=== PATIENT | male | born 1965 | race Caucasian/White ===

== ENCOUNTER 2016-04-07 03:39 | Emergency (ER) | payer OTHER ==
[~2016-04-07] VITALS: Ht 157.5 cm; Wt 70.5 kg
[~2016-04-07 03:39] MED LIST: LOPE2TAB32 PO; ONDA8TAB7 PO
--- NOTE | 2016-04-07 03:45 | ED.REPORT ---
HPI-Abd Pain M 40 and Over Date of Service Apr 07, 2016 ED Provider: The patient is a 50 year old male with history of nephrolithiasis who presents to the ED complaining of left sided abdominal pain for the last 4 hours. He states that his current symptoms are different from those he had with his kidney stones. Associated symptoms of nausea, vomiting, dysuria, constipation, and non-productive cough. He has no history of abdominal surgeries or diverticulitis. He denies any other symptoms at this time. Nursing Notes Stated Complaint: STOMACH PAIN/VOMITING Chief Complaint: Male Abdominal Pain Nursing Notes Reviewed: Yes Allergies: Coded Allergies: wheat (Verified Allergy, Unknown, 04/07/16) Scheduled PRN Loperamide (Loperamide) 2 Mg Tablet 2 MG PO PRN PRN PRN LOOSE Ondansetron ODT (Zofran ODT) 8 Mg Tab.rapdis 8 MG PO PRN PRN PRN For Nausea Ondansetron ODT (Ondansetron ODT) 8 Mg Tab.rapdis 8 MG PO QID PRN PRN For Nausea General Time Seen by MD: 03:44 Chief Complaint Abdominal pain Hx Obtained From: Patient Arrived By: Walk-in Sudden in Onset?: No Onset Occurred: 1 - 4 hours ago Symptom Duration: Since onset Location: : Flank left: LLQ Quality: Painful Severity: Current: Moderate Severity: Maximum: Severe Recent Healthcare: No recent doctor visit, No recent hospitalization Similar Sx Previous: No Past Medical History Past Medical History Kidney stones 5-6 years ago Past Surgical History Jaw surgery many years ago Smoking History Never Smoker Ambulatory Status Independent Review of Systems Constitutional: Denies: Chills, Fever Respiratory: Reports: Non-productive cough, Denies: Shortness of breath Cardiovascular: Denies: Chest pain GI: Reports: Abdominal pain, Constipation, Nausea, Vomiting, Denies: Diarrhea Male: Reports Dysuria, Denies Incontinence Complete sys rev & neg: except as marked. Physical Exam Initial Vital Signs Vital Signs (First) Date Time Temp Pulse Resp B/P Pulse Ox O2 Delivery O2 Flow Rate FiO2 04/07/16 03:51 36.2 60 22 111/72 98 Room Air Initial VS: Reviewed Head / Eyes: Atraumatic, Normocephalic, PERRL ENT: Mucous membranes moist, Conjunctiva normal, No scleral icterus Neck: Supple, Non-tender, Full range of motion Extremities: Vascular intact, Neuro intact, No swelling, No tenderness Skin: Warm, Dry, No cyanosis Neurologic: Alert, Oriented, Nonfocal Psychiatric: Mood/affect normal, Behavior normal, Normal thought content General/Constitutional: Awake, Alert Distress / Hydration: Positive: Distress moderate Appearance / Presentation: Positive: Pale Respiratory / Chest: Atraumatic, Breath sounds NL, Breath sounds = bilat, No respiratory distress Cardiovascular: Heart rate NL, Regular rhythm, Heart sounds NL Abdomen: Atraumatic, Soft Tenderness/Guarding/Rebound: Positive: Tender LLQ... (Moderate) Bowel Sounds / Distention: Positive: Bowel sounds absent Back: Atraumatic, Inspection NL, Full range of motion, Non-tender Interpretation & Diagnostics Lab Results Interpretation Result Diagram: 04/07/16 0355 04/07/16 0355 Test 04/07/16 03:55 White Blood Count 14.4th/mm3 (3.8-10.1) Red Blood Count 4.94mil/mm3 (4.40-5.80) Hemoglobin 14.6g/dL (13.8-17.2) Hematocrit 42.7% (41.0-50.0) Mean Corpuscular Volume 86.4fL (81-100) Mean Corpuscular Hemoglobin 29.6pg (27.0-35.0) Mean Corpuscular Hemoglobin Concent 34.2% (32.0-37.0) Red Cell Distribution Width 13.2% (12.3-15.4) Platelet Count 293bil/L (150-400) Neutrophils (%) (Auto) 80.2% (40-74) Lymphocytes (%) (Auto) 12.6% (14-46) Monocytes (%) (Auto) 5.5% (4-12) Eosinophils (%) (Auto) 1.2% (0-5) Basophils (%) (Auto) 0.2% (0-3) Prothrombin Time 10.7sec (8.1-12.5) Prothromb Time International Ratio 1.00ratio Sodium Level 136mEq/L (134-144) Potassium Level 3.8mEq/L (3.5-5.2) Chloride Level 98mEq/L (97-108) Carbon Dioxide Level 23mmol/L (18-29) Blood Urea Nitrogen 21mg/dL (6-24) Creatinine 1.15mg/dL (0.76-1.27) Estimat Glomerular Filtration Rate 71mL/min (>59) Glucose Level 159mg/dL (60-99) Lactic Acid Level 1.6mmol/L (0.4-2.0) Calcium Level 9.1mg/dL (8.5-10.1) Magnesium Level 1.8mg/dL (1.6-2.6) Total Bilirubin 0.2mg/dL (0.0-1.2) Aspartate Amino Transf (AST/SGOT) 20U/L (0-50) Alanine Aminotransferase (ALT/SGPT) 23U/L (0-44) Alkaline Phosphatase 68U/L (25-150) Total Protein 7.1g/dL (6.4-8.4) Albumin 4.0g/dL (3.4-5.0) Lipase 38U/L (13-60) ECG Interpretation ECG Interpretation: Sinus rhythm wirh rate 74 Prolonged QT interval Time: 04:20 Interpreted by: ED physician CT Abd / Pelvis Interpretation CONCLUSION: Mild left hydronephrosis, with a 3.5 mm calculus within the distal ureter. Small hiatal hernia. Study type: Abdominal CT IV contrast Interpretation / Wet Read by: Interpret - Radiologist Re-Eval/Medical Decision Med Decision/Clinical Course 50-year-old prior history kidney stone presents with left flank pain to abdomen, but does not feel is the same as his kidney stone pain in the past. He said no dysuria or hematuria. His exam shows a silent belly and fairly tender left side. CT shows 3 mm stone about to pass the bladder and moderate hydronephrosis on the left. He is improved on reassessment and has minimal residual tenderness. Assessment ureteral colic plan when necessary Vicodin when necessary ibuprofen and follow up with PCP. Source of Hx: Old records Time of Eval: 05:07 Re-Evaluation/Progress Note: Rechecked the patient who reports that he is feeling better. Discussed imaging results and diagnosis. Discussed plan for discharge. Follow-up instructions and RTER warnings given. The patient understands and agrees to the plan. All questions addressed. Counseled Regarding: Diagnosis, Lab results, Need for follow-up, When/why to return to ED, Other (imaging) Discharge & Departure Primary Impression: Ureteral colic Disposition: Home Vital Signs - All Vital Signs Date Time Temp Pulse Resp B/P Pulse Ox O2 Delivery O2 Flow Rate FiO2 04/07/16 05:44 60 24 108/68 95 Room Air 04/07/16 03:51 36.2 60 22 111/72 98 Room Air )( All Prior VS Reviewed: Yes Condition: Stable Patient Instructions: Renal Colic (ED) Additional Instructions: Drink extra fluids and stay hydrated. Follow-up with your doctor in the office. Vicodin if needed for pain relief. Zofran if needed for nausea relief. Return if any immediate issues. Referrals: Anson Cantor DO (PCP) Domenic Attestation Portions of this note were transcribed by Francisca Ortiz. I, Dr. Haile, personally performed the history, physical exam, and medical decision-making; I reviewed and confirmed the accuracy of the information in the transcribed note. Signed by: Domenic Figueroa, 04/07/16 05:15. copies to: Anson Cantor Christopher W MD Apr 07, 2016 03:45 FRANCISCA ORTIZ Apr 07, 2016 03:51
[2016-04-07] MEDS ORDERED: 0.9% Sodium Chloride 1,000 ML IV ONE (03:50)
[2016-04-07] MEDS ORDERED: Ondansetron 2 mg/mL 2 mL Inj IVPUSH ONE (03:50)
[2016-04-07] MEDS ORDERED: HYDROmorphone 1 mg/mL Inj IVPUSH PRN (03:50)
[2016-04-07] MEDS ORDERED: Pantoprazole 4 mg/mL 10 mL Inj IVPUSH ONE (03:50)
[2016-04-07 03:51] VITALS: BP 111/72; PULSE 60; RESP 22; O2SAT 98
[2016-04-07 04:22] LABS: BASOPHILS % (AUTO) 0.2 % (0-3); EOSINOPHILS % (AUTO) 1.2 % (0-5); MONOCYTES % (AUTO) 5.5 % (4-12); Mean Corpuscular Hemoglobin 29.6 pg (27.0-35.0); Mean Corpuscular Volume 86.4 fL (81-100); NEUTROPHILS % (AUTO) 80.2 % (40-74); Platelet Count 293 bil/L (150-400)
[2016-04-07 04:34] LABS: Magnesium 1.8 mg/dL (1.6-2.6)
[2016-04-07] MEDS ORDERED: _HYDROcodone/APAP 5-325 mg Tablet PO PRN (05:10)
[2016-04-07] MEDS ORDERED: _Ondansetron ODT 4 mg Tablet PO PRN (05:10)
[2016-04-07] MEDS ORDERED: ONDA8TAB10 PO (05:12)
[2016-04-07 05:44] VITALS: BP 108/68; PULSE 60; RESP 24; O2SAT 95
--- NOTE | 2016-04-07 09:01 | DRSVH ---
PROCEDURE: CT ABDOMEN AND PELVIS WITH CONTRAST ([id number]) INDICATIONS: Left abdominal pain. TECHNIQUE: After the administration of oral and intravenous contrast, 5 mm thick sections acquired from the diap hragms to the symphysis. 5 mm thick coronal and sagittal reformats were performed. For radiation do se reduction, the following was used: automated exposure control, adjustment of mA and/or kV accordi ng to patient size. COMPARISON: [facility], CT, ABD/PELVIS W/CON (PN), 07/21/2014, 21:12. FINDINGS: Image quality: Excellent. ABDOMEN: Lung bases: There is mild dependent atelectasis bilaterally. There is a small hiatal hernia. Heart size is normal. Solid organs: There is focal fatty infiltration in the anterior left hepatic lobe. The spleen is nor mal in size. Gallbladder appears within normal limits without calcified gallstones. Biliary system is non-dilated. Pancreas enhances normally. No adrenal nodules. There is mild left hydroureteronep hrosis secondary to a small 4 mm obstructing stone in the distal left ureter just proximal to the ure terovesicular junction. There is associated mild asymmetrically decreased enhancement of the left ki dney. No perinephric stranding or fluid collections. No definite additional renal stones identified although evaluation for punctate stones is limited given the presence of intravenous contrast. Peritoneum and bowel: Stomach, small bowel, and colon loops are normal in caliber and wall thickness . No evidence of appendicitis. No free fluid or air. Nodes and vessels: No retroperitoneal or mesenteric adenopathy. Aorta and inferior vena cava are no rmal in caliber. Miscellaneous: No ventral hernias. PELVIS: Genitourinary: Bladder wall thickness is normal. Miscellaneous: No inguinal hernias or adenopathy. Bones: No suspicious bony lesions. No vertebral body compression fractures. IMPRESSION: 1. Small 4 mm obstructing distal left ureteral stone with associated mild left hydroureteronephrosis . 2. Small hiatal hernia. Dictated by: Jesse Braga M.D. on 04/07/2016 at 8:56 Approved by: Jesse Braga M.D. on 04/07/2016 at 8:56
[2016-07-12] MEDS ORDERED: ALBU8.5H2 INHALATION (08:59)
[2016-07-12] MEDS ORDERED: HYDR50CA PO (08:59)
[2016-07-12] MEDS ORDERED: IBUP800T28 PO (08:59)
[2016-07-12] MEDS ORDERED: LOPE2CAP PO (08:59)
[2016-07-12] MEDS ORDERED: ZOF8 PO (08:59)
== END 2016-04-07 05:46 | disposition home or self-care (01) ==
LOC: SED 03:39
DX: N23 Unspecified renal colic (principal); N13.2 Hydronephrosis with renal and ureteral calculous obstruction; Z87.442 Personal history of urinary calculi
CPT/HCPCS: 36415; 74177; 80053; 83605; 83690; 83735; 85025; 85610; 93005; 96361; 96374; 96375; 99285; J1170; J2405; J7030; Q9967

== ENCOUNTER 2016-04-09 07:11 | Emergency (ER) | payer OTHER ==
[~2016-04-09] VITALS: Ht 157.5 cm; Wt 70.5 kg
[~2016-04-09 07:11] MED LIST changes: +ONDA8TAB10 PO
[2016-04-09 07:15] VITALS: BP 116/76; PULSE 60; RESP 18; O2SAT 97
--- NOTE | 2016-04-09 07:29 | ED.REPORT ---
HPI-Abd Pain M 40 and Over Date of Service Apr 09, 2016 ED Provider: Isaías Jackson MD Pt is a healthy 50 y/o male who presents to the ED for severe left flank pain and nausea. He was seen here two days prior for similar symptoms, at which time he had a CT that revealed a stone in the left ureter. Pain has worsened since his last visit. Symptoms have been treated with prescribed Vicodin and Zofran. Nursing Notes Stated Complaint: POSS KIDNEY STONES Chief Complaint: Male Abdominal Pain Nursing Notes Reviewed: Yes (Neurologix not reconciled) Allergies: Coded Allergies: wheat (Verified Allergy, Unknown, 04/09/16) Scheduled Sertraline HCl (Sertraline) 100 Mg Tablet 100 MG PO DAILY Tamsulosin (Flomax) 0.4 Mg Capsule 0.4 MG PO DAILY Scheduled PRN oxyCODONE-Acetaminophen 5-325 mg (oxyCODONE-Acetaminophen 5-325 mg) 1 Each Tablet 1-2 TAB PO Q4H PRN PRN For Pain General Time Seen by MD: 07:26 Chief Complaint Flank pain right, Flank pain left Hx Obtained From: Patient Arrived By: Walk-in Sudden in Onset?: Yes Location: : Flank left: LLQ Quality: Painful Severity: Current: Moderate Severity: Maximum: Moderate Similar Sx Previous: Yes Past Medical History Past Medical History Notes: Pt seen 2 days ago in the ED diagnosed with a 3.5 mm stone in the distal ureter by CT scan, charged on when necessary Vicodin and ibuprofen [phone] Past Medical History Kidney stones Past Surgical History Jaw surgery many years ago Smoking History Never Smoker Ambulatory Status Independent Review of Systems Constitutional: Reports: Weakness - generalized, Denies: Chills, Fever Respiratory: Denies: Non-productive cough, Shortness of breath GI: Reports: Abdominal pain, Nausea, Denies: Constipation, Diarrhea, Vomiting Male: Reports Flank pain Musculoskeletal: Reports: Back pain Complete sys rev & neg: except as marked. Physical Exam Initial Vital Signs Vital Signs (First) Date Time Temp Pulse Resp B/P Pulse Ox O2 Delivery O2 Flow Rate FiO2 04/09/16 07:15 36.0 60 18 116/76 97 Room Air Initial VS: Reviewed Head / Eyes: Atraumatic, Normocephalic, PERRL ENT: Mucous membranes moist, Conjunctiva normal, No scleral icterus Neck: Supple, Non-tender, Full range of motion Skin: Warm, Dry, No cyanosis Neurologic: Alert, Oriented, Nonfocal Psychiatric: Mood/affect normal, Behavior normal, Normal thought content General/Constitutional: Awake, Alert, Cooperative Appearance / Presentation: Positive: In pain, Uncomfortable Pt in severe pain, clutching his left side. Respiratory / Chest: Breath sounds NL, Breath sounds = bilat, No respiratory distress, No rales, No rhonchi, No wheezing Cardiovascular: Heart rate NL, Regular rhythm, Heart sounds NL, Peripheral circulation NL Abdomen: Atraumatic Tenderness/Guarding/Rebound: Positive: Tender LLQ... (Moderate), Tender flank L Back: Inspection NL, Non-tender Flank / Spine / Paraspinal: Positive: Flank tender L Interpretation & Diagnostics Interpretation & Diagnostics: CT scan from 04/07/2016 reviewed (+3.5mm stone) Lab Results Interpretation Result Diagram: 04/09/16 0743 04/09/16 0743 Test 04/09/16 07:43 04/09/16 10:40 White Blood Count 6.2th/mm3 (3.8-10.1) Red Blood Count 4.80mil/mm3 (4.40-5.80) Hemoglobin 14.3g/dL (13.8-17.2) Hematocrit 42.4% (41.0-50.0) Mean Corpuscular Volume 88.3fL (81-100) Mean Corpuscular Hemoglobin 29.8pg (27.0-35.0) Mean Corpuscular Hemoglobin Concent 33.7% (32.0-37.0) Red Cell Distribution Width 13.3% (12.3-15.4) Platelet Count 217bil/L (150-400) Neutrophils (%) (Auto) 59.5% (40-74) Lymphocytes (%) (Auto) 26.2% (14-46) Monocytes (%) (Auto) 7.4% (4-12) Eosinophils (%) (Auto) 5.8% (0-5) Basophils (%) (Auto) 0.6% (0-3) Sodium Level 139mEq/L (134-144) Potassium Level 4.3mEq/L (3.5-5.2) Chloride Level 102mEq/L (97-108) Carbon Dioxide Level 27mmol/L (18-29) Blood Urea Nitrogen 19mg/dL (6-24) Creatinine 0.98mg/dL (0.76-1.27) Estimat Glomerular Filtration Rate 85mL/min (>59) Glucose Level 95mg/dL (60-99) Calcium Level 9.3mg/dL (8.5-10.1) Total Bilirubin 0.2mg/dL (0.0-1.2) Aspartate Amino Transf (AST/SGOT) 16U/L (0-50) Alanine Aminotransferase (ALT/SGPT) 18U/L (0-44) Alkaline Phosphatase 62U/L (25-150) Total Protein 6.5g/dL (6.4-8.4) Albumin 3.8g/dL (3.4-5.0) Urine Color Yellow (YELLOW) Urine Appearance Hazy (CLEAR,HAZY) Urine pH 6.5 (5.0-8.0) Urine Specific [place] 1.015 (1.003-1.035) Urine Protein Negativemg/dL (NEG,TRACE) Urine Glucose (UA) Negativemg/dL (NEGATIVE) Urine Ketones Negativemg/dL (NEGATIVE) Urine Occult Blood Large (NEGATIVE) Urine Nitrite Negative (NEGATIVE) Urine Bilirubin Negative (NEGATIVE) Urine Urobilinogen Normalmg/dL (NORMAL) Urine Leukocyte Esterase Negative (NEGATIVE) Urine RBC >50/hpf (0-2) Urine WBC 0-5/hpf (0-5) Urine Epithelial Cells Occasional/hpf (NONE-MOD) Urine Crystals None seen (NONE SEEN) Urine Bacteria Few/hpf (NONE-FEW) Urine Hyaline Casts None/lpf (NONE) Urine Granular Casts None seen (NONE SEEN) Urine Waxy Casts None seen (NONE SEEN) Urine Red Blood Cell Casts None seen (NONE SEEN) Urine White Blood Cell Casts None seen (NONE SEEN) Urine Mucus None seen (None Seen) Urine Trichomonas None seen (NONE SEEN) Urine Yeast None (NONE SEEN) Urinalysis Comment None Urine Culture Reflexed Not indicated Lab Results Interpretation: CBC Normal CMP normal Re-Eval/Medical Decision Med Decision/Clinical Course This is a 50-year-old male prior history of kidney stones who was diagnosed a few days ago in the emergency department with a 3.5 mm stone in the distal ureter who presents with an exacerbation of pain uncontrolled with the hydrocodone he was given at home. He has not been taking his ibuprofen. He and his partner and impression were told that the stone is likely pass rapidly, so they are wondering if the stone has "crawl back up" into the ureter. No fever or infectious symptoms. He denies dysuria or gross hematuria. Exam he is afebrile nontoxic, but in significant pain. IV was placed and received Toradol, Dilaudid, ondansetron, and IV fluids with rapid control of his discomfort. He is much improved on reevaluation. Blood work is normal, no markers of infection. He has no local findings of sepsis. I suspect the stone is still the same stone, likely stuck at the UVJ near the valve. I reviewed this previous CT scan, the findings do not indicate negative today that repeat imaging, or new testing, or emergent surgical intervention warranted. Patient's symptoms are more controlled now. The plan is to initiate tamsulosin, which has worked well for his has had kidney stones, reinforced the use of ibuprofen, and I am switching the pain medicine from hydrocodone to oxycodone. The patient already has prescription for an density drawn. A referral to urology is being provided. The patient's being discharged in much better condition. Source of Hx: Old records Time of Eval: 09:25 Re-Evaluation/Progress Note: Pt is comfortable and feeling better. Pt informed of the condition and the treatment plan. He agrees with the plain and does not have any further questions. Pt has requested a work note. Differential Diagnosis: Positive: Urolithiasis, Negative: Abdominal aortic aneurysm, Abscess, Acute coronary syndrome, Cholangitis, Cholecystitis, Cholelithiasis, Contusion abdominal wall, Diverticular disease, Esophageal rupture, Gun shot wound abdomen, Pancreatitis, Peritonitis, Stab wound abdomen Counseled Regarding: Diagnosis, Lab results, Need for follow-up, When/why to return to ED Discharge & Departure Departure Notes Departure Notes: 1. Your symptoms are indicative that the stone has not yet passed. Given its location on CT scan, it is likely adjacent to the valve or enters the bladder. 2. This sized stone does usually pass on its own, and is does not generaly require surgical intervention. 3. Next step is to add tamsulosin 0.4 mg once a day which may help it pass. 4. Continue ibuprofen 400-800mg three time a day (this is important, it also helps relax the ureter in addition to helping with the pain) 5. For pain, we are changing your pain medication to oxycodone/APAP 5/325 1-2 tabs up to every 4-6 hours. Take this INSTEAD of hydrocodone/APAP 5/325! (DO NOT COMBINE). NOTE: The oxycodone is a stronger narcotic, PO2 causes drowsiness. No driving or operating machinery for at least 4 hours after taking. 6. Drink plenty of water. 7. Call to schedule an appointment with the urologist Dr. Segundo. 8. You may have on and off pain over the next several days, but symptoms are expected to improve with time as the stone passes. Primary Impression: Urolithiasis Urinary calculus location: ureter Qualified Code: N20.1 - Calculus of ureter Disposition: Home Vital Signs - All Vital Signs Date Time Temp Pulse Resp B/P Pulse Ox O2 Delivery O2 Flow Rate FiO2 04/09/16 10:48 36.0 56 18 116/76 97 Room Air 04/09/16 09:29 56 112/72 97 04/09/16 07:15 36.0 60 18 116/76 97 Room Air )( All Prior VS Reviewed: Yes Condition: Stable Additional Instructions: 1. Your symptoms are indicative that the stone has not yet passed. Given its location on CT scan, it is likely adjacent to the valve or enters the bladder. 2. This sized stone does usually pass on its own, and is does not generaly require surgical intervention. 3. Next step is to add tamsulosin 0.4 mg once a day which may help it pass. 4. Continue ibuprofen 400-800mg three time a day (this is important, it also helps relax the ureter in addition to helping with the pain) 5. For pain, we are changing your pain medication to oxycodone/APAP 5/325 1-2 tabs up to every 4-6 hours. Take this INSTEAD of hydrocodone/APAP 5/325! (DO NOT COMBINE). NOTE: The oxycodone is a stronger narcotic, PO2 causes drowsiness. No driving or operating machinery for at least 4 hours after taking. 6. Drink plenty of water. 7. Call to schedule an appointment with the urologist Dr. Kevwitch. 8. You may have on and off pain over the next several days, but symptoms are expected to improve with time as the stone passes. Referrals: [facility] (PCP) Jhonyibpierre Attestation Portions of this note were transcribed by Tr Foley and Alyssa Mace. I, Dr. Jackson personally performed the history, physical exam and medical decision -making; I reviewed and confirmed the accuracy of the information in the transcribed note. Signed by:Tr Foley and Domenic Baez, 04/09/16 and 3662. copies to: [facility] Isaías Jackson MD Apr 09, 2016 07:29 Tr Foley Apr 09, 2016 08:36 ALYSSA MACE Apr 09, 2016 09:48
[2016-04-09] MEDS ORDERED: HYDROmorphone 0.5 mg/0.5 mL iSecure Syringe IVPUSH PRN (07:30)
[2016-04-09] MEDS ORDERED: Ondansetron 2 mg/mL 2 mL Inj IVPUSH ONE (07:30)
[2016-04-09] MEDS ORDERED: 0.9% Sodium Chloride 1,000 ML IV ONE (07:45)
[2016-04-09 08:14] LABS: BASOPHILS % (AUTO) 0.6 % (0-3); EOSINOPHILS % (AUTO) 5.8 % (0-5); MONOCYTES % (AUTO) 7.4 % (4-12); Mean Corpuscular Hemoglobin 29.8 pg (27.0-35.0); Mean Corpuscular Volume 88.3 fL (81-100); NEUTROPHILS % (AUTO) 59.5 % (40-74); Platelet Count 217 bil/L (150-400)
[2016-04-09] MEDS ORDERED: OXYC1TAB24 PO (08:35)
[2016-04-09] MEDS ORDERED: TAMS0.4C98 PO (08:35)
[2016-04-09 09:29] VITALS: BP 112/72; PULSE 56; O2SAT 97
[2016-04-09] MEDS ORDERED: SERT100T9 PO (09:33)
[2016-04-09 10:48] VITALS: BP 116/76; PULSE 56; RESP 18; O2SAT 97
[2016-04-09 11:29] LABS: APPEARANCE,URINE HAZY (CLEAR,HAZY); COLOR,URINE YELLOW (YELLOW); OCCULT BLOOD,URINE LARGE (NEGATIVE); PH,URINE 6.5 (5.0-8.0); UROBILINOGEN,URINE NORMAL (NORMAL)
[2016-07-12] MEDS ORDERED: IBUP800T28 PO (08:59)
[2016-07-12] MEDS ORDERED: LOPE2CAP PO (08:59)
[2016-07-12] MEDS ORDERED: HYDR50CA PO (08:59)
[2016-07-12] MEDS ORDERED: ZOF8 PO (08:59)
[2016-07-12] MEDS ORDERED: ALBU8.5H2 INHALATION (08:59)
== END 2016-04-09 10:49 | disposition home or self-care (01) ==
LOC: SED 07:11
DX: N20.1 Calculus of ureter (principal); Z91.02 Food additives allergy status
CPT/HCPCS: 36415; 80053; 81000; 85025; 96361; 96374; 96375; 99285; J1170; J2405; J7030

== ENCOUNTER 2016-07-13 11:15 | Day surgery (SDC) | payer OTHER ==
[~2016-07-13] VITALS: Ht 157.5 cm; Wt 68.2 kg
[2016-07-13] VITALS (10 sets, daily range): BP systolic 105–116; BP diastolic 60–81; PULSE 54–94; RESP 15–20; O2SAT 94–100
[~2016-07-13 11:15] MED LIST changes: +ALBU8.5H2 INHALATION; +HYDR50CA PO; +IBUP800T28 PO; +LOPE2CAP PO; -LOPE2TAB32 PO; +Lactated Ringer's 1,000 ML IV ONE; -ONDA8TAB10 PO; -ONDA8TAB7 PO; +OXYC1TAB24 PO; +SERT100T9 PO; +ZOF8 PO
[2016-07-13] MEDS ORDERED: EPHEDrine/NS 5 mg/mL 5 mL Syringe ONE (11:16)
[2016-07-13] MEDS ORDERED: fentaNYL-PF 50 mCg/mL 2 mL Inj ONE (11:16)
[2016-07-13] MEDS ORDERED: Succinylcholine Chloride 20 mg/mL 5 mL Inj ONE (11:16)
[2016-07-13] MEDS ORDERED: Propofol 10,000 mCg/mL 20 mL Inj ONE (11:16)
[2016-07-13] MEDS ORDERED: Lactated Ringer's 500 ML IV PRN (12:41)
[2016-07-13] MEDS ORDERED: Lactated Ringer's 1,000 ML IV SCH (12:41)
--- NOTE | 2016-07-13 12:41 | PCM.HPANE ---
Patient Data Surgeon Admitting Provider: Attending Provider:Robson Diop DO Primary Care Physician:Clinic,[facility] Residency Other Provider:Marzena Seymour Anesthesia Reason for Visit Right Torn Medial Meniscus Ht/WT & BMI Height (Feet): 5 Height (Inches): 2 Weight (Kilograms): 70.670 Body Mass Index 28.00 Allergies Coded Allergies: wheat (Verified Adverse Reaction, Severe, NAUSEA, 07/12/16) Past Anesthesia History Anesthesia History: Denies:: Abnormal Airway (S/P JAW RPR), Anesthesia Reactions, Malignant Hyperthermia Diabetes History Hx Diabetes?: No MRSA MRSA: No Medications Reported Medications Ibuprofen 800 Mg [id number] Mg PO TID PRN For Pain Ref 0 07/12/16 Albuterol HFA (Proair HFA)8.5 Gm Hfa.aer.ad2 Puffs INHALATION Q4H PRN PRN #1 INHALER 07/12/16 Sertraline HCl (Sertraline)100 Mg [id number] Mg PO DAILY 30 Days Ref 0 04/09/16 Discontinued Reported Medications Ondansetron (Zofran)8 Mg Tablet8 Mg PO Q12H PRN For Nausea 07/12/16 Hydroxyzine Pamoate (Vistaril)50 Mg [id number] Mg PO HS PRN For Insomnia Ref 0 07/12/16 Loperamide 2 Mg Capsule2-4 Mg PO Q4H PRN PRN 07/12/16 Discontinued Scripts oxyCODONE-Acetaminophen 5-325 mg 1 Each Tablet1-2 Tab PO Q4H PRN For Pain #25 TABLET Ref 0 Prov:Isaías Jackson MD 04/09/16 Tamsulosin (Flomax)0.4 Mg Capsule0.4 Mg PO DAILY #10 CAPSULE Ref 0 Prov:Isaías Jackson MD 04/09/16 History History of ENT Problems?: Yes HEENT History: Denies:: Abnormal Airway (S/P JAW RPR) Denture Type: Full- Upper Full- Lower Teeth Condition: No Teeth Hx of Heart Problems?: Yes Cardiovascular History: Denies:: Congestive Heart Failure Heart Murmur Hypertension (HYPERLIPIDEMIA) Hx of Respiratory Problem?: Yes Respiratory History: Positive for:: Asthma Use of Inhalers / NEBS Denies:: Tuberculosis Use of C-PAP Machine Hx Neurologic Problems?: Yes Hx of GI Problems?: No Hx of Problems?: Yes Genitourinary History: Positive for:: Kidney Stones (HX PRIOR STONES-LAST ON 03/2016 (PASSED ON OWN)) Male Hx: Denies:: Prostate Problems Scrotal Mass Testicular Surgery Skin History: Denies:: History Skin Disorders? Pressure Ulcers Hx Musculoskeletal Problems?: Yes Musculoskeletal History: Positive for:: Back Injury (C/OF LUMBAR PAIN) Musculoskeletal Trauma (RT KNEE MENISCAL TEAR-=CURRENT PROBLEM S/P RT CLAVICLE RPR) Hx of Psycho/Social Problems?: Yes Psycho Social History: Positive for:: Hx Depression Hx Surgeries?: Yes (JAW,RT CLAVICLE) Hx Any Other Health Problems?: Yes Other History: Denies:: Cancer Endocrine Disease Hospitalization Thyroid Disease History Blood Transfusions: Denies:: Blood Transfusions Hx Diabetes: No Hx Alcohol Use: NoHx Substance Use: No Smoking Status: Never Smoker Have You Smoked inLast 12 mo: No Stop/Bang S-Snoring: Do You Snore Loudly: No T-Tired: feel tired, fatigued: Yes O-Obsered: Observed not breath: No P-Blood Pressure: treated: No B- Body Mass Index > 35 kg/m2: No A- Age over 50: Yes N- Neck Large Circumference: No G- Gender Male: Yes MARIA EUGENIA Total Score: 3 Risk Assessment Category Category 1A: Patient has history of documented sleep apnea, and HAS NOT received any narcotic, sedative or anesthesia administration during this stay. Category 1B: Patient has history of documented sleep apnea, and HAS received any narcotic , sedative or anesthesia administration during this stay Category 2: Patient has SUSPECTED Obstructive Sleep Apnea, and HAS received any narcotic , sedative or anesthesia administration during this stay. Category 3: Patient has SUSPECTED Obstructive Sleep Apnea and HAS NOT received narcotic, sedative or anesthesia administration during this stay. Category 4: Outpatient in Procedural Areas with known sleep apnea or who screen positive for High Risk via the STOP/BANG questionnaire. Exam Exam General Appearance: Alert, Oriented X3, Cooperative, No Acute Distress HEENT/AIRWAY: MP 2 Lungs: Clear to Auscultation Heart: Exam Unremarkable Plan Impression Patient chart reviewed, patient interviewed and anesthestic plan with risks, benefits, and alternatives discussed, and informed consent obtained. ASA Physical Status: ASA2 Mod Systemic Disease Anesthetic Plan: GA Bene/Risks/Altern/Consents: Yes HP Complete Prior to Induction: Yes Rosales Ganrer MD Jul 13, 2016 07:55
[2016-07-13] MEDS ORDERED: Dexamethasone 4 mg/mL Inj IVPUSH PRN (12:45)
[2016-07-13] MEDS ORDERED: Ondansetron 2 mg/mL 2 mL Inj IVPUSH PRN (12:45)
[2016-07-13] MEDS ORDERED: MetoCLOpramide 5 mg/mL 2 mL Inj IVPUSH PRN (12:45)
[2016-07-13] MEDS ORDERED: EPHEDrine Sulfate 50 mg/mL Inj IVPUSH PRN (12:45)
[2016-07-13] MEDS ORDERED: fentaNYL-PF 50 mCg/mL 2 mL Inj IVPUSH PRN (12:45)
[2016-07-13] MEDS ORDERED: Phenylephrine 10,000 mCg/mL Inj IVPUSH PRN (12:45)
[2016-07-13] MEDS ORDERED: HYDROmorphone 1 mg/mL Inj IVPUSH PRN (12:45)
[2016-07-13] MEDS ORDERED: Lidocaine 2%-Epi 1:100,000 20 mL Inj INFILTRATE ONE (12:50)
[2016-07-13] MEDS ORDERED: Ropivacaine-PF 0.5% 30 mL Inj INJ ONE (12:50)
[2016-07-13] MEDS ORDERED: oxyCODONE-Acetamin 5-325 mg Tablet PO PRN (13:25)
[2016-07-13] MEDS ORDERED: hydrOXYzine Pamoate 25 mg Capsule PO PRN (13:25)
--- NOTE | 2016-07-13 13:46 | PCM.ANEP1 ---
Post Anesthesia Phase 1 PACU Phase 1 Assessment Vital Signs Vital Signs Date Time Temp Pulse Resp B/P Pulse Ox O2 Delivery O2 Flow Rate FiO2 07/13/16 13:42 87 17 109/67 94 Room Air 07/13/16 13:34 85 15 111/60 94 Room Air 07/13/16 13:20 88 20 110/68 95 Room Air 07/13/16 13:15 93 20 110/64 99 Simple Mask 10 07/13/16 13:10 94 18 116/70 99 Simple Mask 10 07/13/16 13:08 36.1 88 17 116/70 100 Simple Mask 10 07/13/16 11:44 36.2 54 16 113/80 98 Room Air Anesthetic Administered: GA Level of Alertness: Sleepy, easy to arouse CHILEL's with Equal Strength: Yes Pain: No Nausea or Vomiting: No Oxygen Delivery: Simple Mask Lungs: Clear to Auscultation Dermatome Level: Full Sensation Complications: No Rosales Garner MD Jul 13, 2016 13:46
--- NOTE | 2016-07-13 14:28 | OP ---
[address] [address] OPERATIVE REPORT PATIENT: BRITT QUIROS : 1965 MR#: [id number] ADMIT: 07/13/2016 JOB ID: [id number] DATE OF SURGERY: 07/13/2016 PREOPERATIVE DIAGNOSIS(ES): Right knee torn medial meniscus. POSTOPERATIVE DIAGNOSIS(ES): Right knee torn medial meniscus. PROCEDURE: Right knee video arthroscopy with partial medial meniscectomy. SURGEON: Robson Diop DO. ANESTHESIA: General. INDICATIONS: The patient is a 50-year-old male who injured his right knee and had an MCL sprain, rehabbed from this, but had persistent pain. Had an MRI which was consistent with a torn medial meniscus and wished to proceed with a partial medial meniscectomy. We discussed risks, benefits, and possible complications of surgery. All questions were answered and he wished to proceed. PROCEDURE IN DETAIL: Patient was brought to the operating room. He was given a preoperative general anesthetic. The right lower extremity was sterilely prepped and draped. An incision was made over the anterolateral knee and blunt trocar was introduced into the knee. Inspection was undertaken. He was found to have a radial tear in the medial meniscus. A medial portal was established under needle localization. The lateral compartment was in excellent condition and the articular cartilage in the medial compartment was generally in good condition, with some minor C1 and C2 changes. His meniscal tear was resected back to a stable base with a combination of biters and shaver. The patellofemoral joint was in good condition. ACL was intact. The scope was then removed and the portals were closed with interrupted nylon suture. Naropin was added as an adjunct local anesthetic. Sterile dressings were applied. Patient tolerated the procedure well. Blood loss was minimal. POSTOPERATIVE PROTOCOL: Have the patient weightbear to tolerance. Use crutches for ambulation. Ice and elevate and follow up in the clinic in two weeks or sooner if needed. He was given a prescription for oxycodone 5 mg for pain.
== END 2016-07-13 23:59 | disposition home or self-care (01) ==
LOC: SAS 11:15
PROVIDERS: ATTEND Orthopaedic Surgery
DX: S83.241A Other tear of medial meniscus, current injury, right knee, initial encounter (principal); E78.5 Hyperlipidemia, unspecified; F41.9 Anxiety disorder, unspecified
CPT/HCPCS: 29881; J0330; J1885; J2795; J3010; J7120